=== PATIENT | male | born 1985 | race Caucasian/White ===

== ENCOUNTER 2019-03-29 17:54 | Emergency (ER) | payer MEDICAID, OTHER | END 2019-03-29 19:01 | disposition home or self-care (01) | LOC: FTE 17:54 | DX: K21.9 Gastro-esophageal reflux disease without esophagitis (principal); R19.7 Diarrhea, unspecified; B00.1 Herpesviral vesicular dermatitis | CPT/HCPCS: 99283; Z7502 ==